=== PATIENT | male | born 1980 | race Caucasian/White ===

== ENCOUNTER 2019-07-10 12:40 | Emergency (ER) | payer OTHER ==
--- NOTE | 2019-07-10 14:11 | ED ---
Psychiatric Complaint - HPI Summary HPI Summary: 39 year old M arriving via private car to [facility] complains of anxiety attacks, decreased appetite, insomnia x6 weeks. Patient states he was released from incarceration 6 weeks ago and was not given any medications or prescriptions when he was released. He has not had any of his psychiatric medications for 6 weeks. Patient had an appointment with Mental Health this morning and was referred to the ED for medication refill. He states he has been unable to find anyone to prescribe him his psychiatric medications. Patient states he has an appointment with Saritha tomorrow 07/11/2019 AM as new patient. Patient denies suicidal ideation and homicidal ideation. Symptoms aggravated by nothing. Symptoms alleviated by nothing. Medications reviewed. Allergies noted. Home Medications Medication Instructions Recorded Confirmed Type Depakote 500 mg PO BID 11/28/13 07/10/19 History hydrOXYzine pamoate [Vistaril] 25 mg PO BID 12/01/18 07/10/19 History Risperidone 1 mg PO BID 07/10/19 07/10/19 History - History Of Current Complaint Chief Complaint: EDPsychosocial Time Seen by Provider: 07/10/19 13:59 Hx Obtained From: Patient Onset/Duration: Lasting Weeks - 6, Still Present Aggravating Factor(s): Nothing Alleviating Factor(s): Nothing Has Suicidal: Denies: Thoughts Has Homicidal: Denies: Thoughts - Allergies/Home Medications Allergies/Adverse Reactions: Allergies Allergy/AdvReac Type Severity Reaction Status Date / Time Penicillins Allergy Swelling Verified 07/10/19 12:47 Of Face,Lips,& Throat Home Medications: Home Medications Depakote 500 mg PO BID 11/28/13 [History Confirmed 07/10/19] hydrOXYzine pamoate [Vistaril] 25 mg PO BID 12/01/18 [History Confirmed 07/10/19 ] Divalproex Sodium [Depakote] 500 mg PO BID #20 tablet. 07/10/19 [Rx] Risperidone 1 mg PO BID 07/10/19 [History Confirmed 07/10/19] hydrOXYzine HCL TAB* [Atarax 25 MG TAB*] 25 mg PO TID PRN #30 tab 07/10/19 [Rx] risperiDONE TAB* [Risperdal*] 1 mg PO BID #20 tab 07/10/19 [Rx] PMH/Surg Hx/FS Hx/Imm Hx Endocrine/Hematology History: Denies: Hx Diabetes, Hx Thyroid Disease Cardiovascular History: Denies: Hx Hypertension Comment Only: Other Cardiovascular Problems/Disorders - PATERNAL HX OF VALVE ISSUES Respiratory History: Reports: Hx Asthma Denies: Hx Chronic Obstructive Pulmonary Disease (COPD) GI History: Denies: Hx Ulcer Psychiatric History: Reports: Hx Depression, Hx Post Traumatic Stress Disorder, Hx of Violent Episodes Against Others, Other Psychiatric Issues/Disorders - borderline personality disorder Denies: Hx Eating Disorder - Surgical History Surgery Procedure, Year, and Place: abd laparoscopies; hernia Infectious Disease History: No Infectious Disease History: Reports: Hx of Known/Suspected MRSA Denies: Hx Clostridium Difficile, Hx Hepatitis, Hx Human Immunodeficiency Virus (HIV), Hx Shingles, Hx Tuberculosis, Hx Known/Suspected VRE, Hx Known/ Suspected VRSA, History Other Infectious Disease, Traveled Outside the [place] in Last 30 Days - Family History Known Family History: Positive: Other - depression - Social History Alcohol Use: Weekly Hx Substance Use: Yes Substance Use Type: Reports: Marijuana Hx Tobacco Use: Yes Smoking Status (MU): Heavy Every Day Tobacco Smoker Type: Cigarettes Amount Used/How Often: 2 ppd or more Length of Time of Smoking/Using Tobacco: 17+ YEARS Have You Smoked in the Last Year: Yes Review of Systems Positive: Other - decreased appetite Positive: Other - anxiety attacks, insomnia; NEGATIVE: suicidal ideation, homicidal ideation All Other Systems Reviewed And Are Negative: Yes Physical Exam - Summary Physical Exam Summary: Appearance: The patient is well-nourished in no acute distress and in no acute pain. Skin: The skin is warm and dry, and skin color reflects adequate perfusion. HEENT: The head is normocephalic and atraumatic. The pupils are equal and reactive. The conjunctivae are clear and without drainage. Nares are patent and without drainage. Mouth reveals moist mucous membranes, and the throat is without erythema and exudate. The external ears are intact. The ear canals are patent and without drainage. The tympanic membranes are intact. Neck: The neck is supple with full range of motion and non-tender. There are no carotid bruits. There is no neck vein distension. Respiratory: Chest is non-tender. Lungs are clear to auscultation and breath sounds are symmetrical and equal. Cardiovascular: Heart is regular rate and rhythm. There is no murmur or rub auscultated. There is no peripheral edema and pulses are symmetrical and equal. Abdomen: The abdomen is soft and non-tender. There are normal bowel sounds heard in all four quadrants and there is no organomegaly palpated. Musculoskeletal: There is no back tenderness noted. Extremities are non-tender with full range of motion. There is good capillary refill. There is no peripheral edema or calf tenderness elicited. Neurological: Patient is alert and oriented to person, place and time. The patient has symmetrical motor strength in all four extremities. Cranial nerves are grossly intact. Deep tendon reflexes are symmetrical and equal in all four extremities. Psychiatric: The patient has an appropriate affect and does not exhibit any anxiety or depression. Triage Information Reviewed: Yes Vital Signs On Initial Exam: Initial Vitals Temp Pulse Resp BP Pulse Ox 97.1 F 76 16 142/65 98 07/10/19 12:42 07/10/19 12:42 07/10/19 12:42 07/10/19 12:42 07/10/19 12:42 Vital Signs Reviewed: Yes Procedures - Sedation Patient Received Moderate/Deep Sedation with Procedure: No Diagnostics - Vital Signs Vital Signs Temp Pulse Resp BP Pulse Ox 07/10/19 12:42 97.1 F 76 16 142/65 98 - Laboratory Lab Statement: Any lab studies that have been ordered have been reviewed, and results considered in the medical decision making process. Course/Dx - Course Course Of Treatment: I don't mind renewing Mr. Cruz's medications until he has a chance to get in to see either his new PCP at [facility] or his psychiatrist. There is no indication that there is a danger to himself or others at this time. - Differential Dx/Clinical Impression Provider Diagnosis: Bipolar disorder Discharge ED - Sign-Out/Discharge Documenting (check all that apply): Patient Departure - Discharge Plan Condition: Stable Disposition: HOME Prescriptions: Divalproex Sodium [Depakote] 500 mg PO BID #20 tablet. hydrOXYzine HCL TAB* [Atarax 25 MG TAB*] 25 mg PO TID PRN #30 tab PRN Reason: Anxiety risperiDONE TAB* [Risperdal*] 1 mg PO BID #20 tab Patient Education Materials: Medicine Refill (ED) Referrals: [facility] [Provider Group] - 07/11/19 Additional Instructions: Follow up with Melara at your scheduled appointment tomorrow 07/11/2019. Return to the Emergency Department for new or worsening symptoms. - Billing Disposition and Condition Condition: STABLE Disposition: Home - Attestation Statements Document Initiated by Maria De Jesus: Yes Documenting Scribe: Crystal Tran Provider For Whom Maria De Jesus is Documenting (Include Credential): Frederick Shah MD Scribe Attestation: ICrystal, scribed for Frederick Shah MD on 07/10/19 at 2120. Scribe Documentation Reviewed: Yes Provider Attestation: The documentation as recorded by the [email or web address] angeles accurately reflects the service I personally performed and the decisions made by me, Frederick Shah MD Status of Scribe Document: Viewed
[2019-07-10 18:19] VITALS: BP 0/0
== END 2019-07-10 14:30 | disposition home or self-care (01) ==
LOC: ED 12:40
DX: F31.9 Bipolar disorder, unspecified (principal); Z76.0 Encounter for issue of repeat prescription; Z88.0 Allergy status to penicillin; F17.210 Nicotine dependence, cigarettes, uncomplicated
CPT/HCPCS: 99282

== ENCOUNTER 2019-07-27 15:53 | Emergency (ER) | payer OTHER ==
--- OUTSIDE RECORDS SUMMARY | 2019-07-27 15:56 | XMS REPORT ---
:1980 Demographics Phone Unavailable Preferred Language Unknown Marital Status Unknown Anabaptist Affiliation Unknown Race Unknown Additional Race(s) Unknown Ethnic Group Unknown Author Organization [facility] Care Team Providers Name Role Phone RAOUL MELGAR Primary Care Physician Unavailable Allergies, Adverse Reactions, Alerts Allergy Code CodeSystem Reaction Severity Criticality Status Start Substance Date Moderate Medications Medication Medication Medication Start Stop Route Dose Status Fill Code CodeSystem Date Date Instructions RxNorm Problems Problem Name Code CodeSystem Alternate Alternate Start End Status Narrative Code CodeSystem Date Date Emotionally 96128699 SNOMED-CT Active unstable 3-22 personality disorder Emotionally 13838503 SNOMED-CT Active unstable 3-22 personality disorder Emotionally [id number] SNOMED-CT Active unstable 3-22 personality disorder Relevant diagnostic tests/laboratory data Narrative No Information Procedures Procedure Code CodeSystem Target Date of Status Service Device Device Device Name Site Procedure Delivery Code Name UID Location SNOMED-CT () 2019-07-[address], [id number] Encounters/Encounter Diagnoses Encounter Encounter Diagnosis Diagnosis Name Diagnosis Date of Service Name Code Code CodeSystem Diagnosis Delivery Location Non-Billable [id number] Emotionally SNOMED-CT 2019-07-10 [facility] , , disorder , Vital Signs No Information Social History Element Description Description Start End Code CodeSystem AdditionalInfo Date Date SexAssignedAtBirth Male 1980-0 M AdministrativeGender 06-05 Hospital Discharge Instructions Reason For Referral Medical Equipment FDA Assessments
--- OUTSIDE RECORDS SUMMARY | 2019-07-27 15:56 | XMS REPORT | Summary of Care ---
:1980 Author Organization [facility] Address [address] [facility] [place] [address] Care Team Providers Name Role Phone Sudhir Luna Primary Care Provider Reason for Visit Reason Comments Establish Care Pt would like to re-establish care. ER F/U Pt seen at ER 07/10 for medications that he did not have refills on and was out of for weeks. Encounter Details Date Type Department Care Team Description 07/11/2019 Office Visit [facility] Ki Matthew MD Anxiety (Primary Dx); Practice [address] [facility] Difficulty controlling anger [address] [place] [address] [place] [address] [phone] Allergies Active Allergy Reactions Severity Noted Date Comments Penicillin G Potassium 01/14/2008 documented as of this encounter (statuses as of 07/11/2019) Medications Medication Sig Dispensed Refills Start Date End Date Status hydrOXYzine HCL Take 1 Tab 120 Tab 2 07/11/2019 Active (ATARAX) 25 MG Oral by mouth TabIndications: THREE TIMES Anxiety DAILY NEEDED (for anxiety). divalproex sodium Take 1 Tab 60 Tab 2 07/11/2019 Active (DEPAKOTE) 500 MG by mouth Oral Tab TWICE DAILY. ECIndications: Difficulty controlling anger risperidone Take 1 Tab 60 Tab 2 07/11/2019 Active (RISPERDAL) 1 MG by mouth Oral TabIndications: TWICE DAILY. Difficulty controlling anger mirtazapine Take 1 Tab 30 Tab 2 10/21/2013 Discontinued (REMERON) 15 MG Oral by mouth 0 (Other) Tab EVERY BEDTIME. diphenhydrAMINE Take 50 mg 0 Discontinued (BENADRYL) 50 MG by mouth 0 Oral Cap EVERY 4-6 HOURS PRN. divalproex sodium Take 3 Tabs 90 Tab 2 07/31/2014 Discontinued (DEPAKOTE) 500 MG by mouth 0 (Other) Oral Tab EC EVERY BEDTIME. fluoxetine (PROZAC) Take 1 Cap 30 Cap 2 07/31/2014 Discontinued 20 MG Oral Cap by mouth 0 (Other) DAILY. hydrOXYzine HCL Take 1 Tab 90 Tab 2 07/31/2014 Discontinued (ATARAX) 25 MG Oral by mouth 0 (Other) Tab EVERY EIGHT HOURS NEEDED for Itching or anxiety. ranitidine (ZANTAC) Take 1 Tab 60 Tab 5 07/31/2014 Discontinued 150 MG Oral Tab by mouth 0 (Other) TWICE DAILY. trazodone (DESYREL) Take 1 Tab 30 Tab 2 07/31/2014 Discontinued 100 MG Oral Tab by mouth 0 (Other) EVERY BEDTIME. risperidone Take 1 mg by 0 Discontinued (RISPERDAL) 1 MG mouth TWICE 0 (Other) Oral Tab DAILY. documented as of this encounter (statuses as of 07/11/2019) Active Problems Problem Noted Date Depression 01/14/2008 Anxiety 01/14/2008 History of Anger Reaction 01/14/2008 Overview: Was followed by [facility]. Tobacco user documented as of this encounter (statuses as of 07/11/2019) Social History Tobacco Use Types Packs/Day Years Used Date Current Every Day Smoker Cigarettes 3 Smokeless Tobacco: Former User Alcohol Use Drinks/Week oz/Week Comments Not Currently occasionally Sex Assigned at Date Recorded Not on file documented as of this encounter Last Filed Vital Signs Vital Sign Reading Time Taken Comments Blood Pressure 114/72 07/11/2019 8:27 AM EST Pulse 72 07/11/2019 8:27 AM EST Temperature - - Respiratory Rate - - Oxygen Saturation - - Inhaled Oxygen Concentration - - Weight 93.9 kg (207 lb) 07/11/2019 8:27 AM EST Height 179.1 cm (5' 10.5") 07/11/2019 8:27 AM EST Body Mass Index 29.28 07/11/2019 8:27 AM EST documented in this encounter Progress Notes Ristedt, Ki, MD - 07/11/2019 8:20 AM EST PATIENT: Keagan Cruz : 1980 DATE OF SERVICE: 07/11/2019 CHIEF COMPLAINT: Chief Complaint Patient presents with ? Establish Care Pt would like to re-establish care. ? ER F/U Pt seen at ER 07/10 for medications that he did not have refills on and was out of for weeks. Subjective HISTORY OF PRESENT ILLNESS: Keagan Cruz is a 39-y.o. male. [facility]--previously followed by Dr. Luna for anger issues. Is being seen at the [facility] and should be able to see the Psychiatrist on about a month. Is required to attend anger management classes per court order and he is back with his longtime girlfriend and mother of his 12 year old. She is currently and they are working together to keep him straight. Seen last night in the ED for medication refills. The combination was what he was on prior to going [facility]. He notes it generally works well to control his anger but there are times the medication does not control it well enough--hence the stent in [facility]. He has no other complaints today. Past Medical History: Diagnosis Date ? Amblyopia of left eye ? Anxiety 01/14/2008 ? Borderline personality disorder (HCC) ? Depression 01/14/2008 ? History of Anger Reaction 01/14/2008 Was followed by [facility]. ? Tobacco user Family History Problem Relation Age of Onset ? Anxiety Mother ? Respiratory Father Sleep apnea ? Diabetes Sister ? Anxiety Sister #1 ? Anxiety Sister #2 ? Depression/Depressed Sister #1 ? Asthma Sister Current Outpatient Medications Medication Sig ? divalproex sodium (DEPAKOTE) 500 MG Oral Tab EC Take 3 Tabs by mouth EVERY BEDTIME. (Patienttaking differently: Take 500 mg by mouth TWICE DAILY.) ? hydrOXYzine HCL (ATARAX) 25 MG Oral Tab Take 1 Tab by mouth EVERY EIGHT HOURS NEEDED for Itching or anxiety. (Patient taking differently: Take 25 mg by mouth THREE TIMES DAILY NEEDED. Indications: Feeling Anxious) ? risperidone (RISPERDAL) 1 MG Oral Tab Take 1 mg by mouth TWICE DAILY. No current facility-administered medications for this visit. Allergies Allergen Reactions ? Penicillin [Penicillin G Potassium] Social History Socioeconomic History ? Marital status: Single Spouse name: Not on file ? Number of children: Not on file ? Years of education: Not on file ? Highest education level: Not on file Occupational History ? Not on file Social Needs ? Financial resource strain: Not on file ? Food insecurity Worry: Not on file Inability: Not on file ? Transportation needs Medical: Not on file Non-medical: Not on file Tobacco Use ? Smoking status: Current Every Day Smoker Packs/day: 3.00 Types: Cigarettes ? Smokeless tobacco: Former User Substance and Sexual Activity ? Alcohol use: Not Currently Comment: occasionally ? Drug use: Yes Types: Marijuana Comment: and K2 ? Sexual activity: Yes Partners: Female Lifestyle ? Physical activity Days per week: Not on file Minutes per session: Not on file ? Stress: Not on file Relationships ? Social connections Talks on phone: Not on file Gets together: Not on file Attends yarsani service: Not on file Active member of club or organization: Not on file Attends meetings of clubs or organizations: Not on file Relationship status: Not on file ? Intimate partner violence Fear of current or ex partner: Not on file Emotionally abused: Not on file Physically abused: Not on file Forced sexual activity: Not on file Other Topics Concern ? Not on file Social History Narrative ? Not on file Over the last 2 weeks, have you been feeling down, depressed, anxious, or hopeless?: 3 Over the past 2 weeks, have you felt little interest or pleasure in doing things ?: 3 Trouble falling or staying asleep, or sleeping too much?: 3 Feeling tired or having little energy?: 0 Poor appetite or overeating?: 1 Feeling bad about yourself or that you are a failure or have let yourself or your family down?: 3 Trouble concentrating on things, such as reading the newspaper or watching TV?: 3 Moving or speaking so slowly that other people notice OR being fidgety and restless?: 3 Thoughts that you would be better off or of hurting yourself in some way?: 0 PHQ-9 TOTAL SCORE: 19 How difficult have these problems made it for you to do your work, take care of things at home or get along with people?: Extremely difficult In the past 2 years, have you felt depressed or sad most days, even if you felt ok?: Yes REVIEW OF SYSTEMS: Review of Systems Constitutional: Negative for chills, diaphoresis, fever, malaise/fatigue and weight loss. HENT: Negative for congestion, ear discharge, ear pain, hearing loss, sinus pain and sore throat. Eyes: Negative for blurred vision, pain and discharge. Respiratory: Negative for cough, sputum production, shortness of breath and wheezing. Cardiovascular: Negative for chest pain, palpitations and leg swelling. Gastrointestinal: Negative for abdominal pain, blood in stool, constipation, diarrhea, heartburn, nausea and vomiting. Genitourinary: Negative for dysuria, flank pain, frequency and urgency. Musculoskeletal: Negative for falls, joint pain and myalgias. Neurological: Negative for dizziness, tingling, sensory change, loss of consciousness, weakness and headaches. Psychiatric/Behavioral: Positive for depression and substance abuse. Negative for suicidal ideas. The patient is nervous/anxious. The patient does not have insomnia. Objective PHYSICAL EXAM: VITALS: BP 114/72 | Pulse 72 | Ht 5' 10.5" (1.791 m) | Wt 207 lb (93.9 kg) | BMI 29.28 kg/m Body mass index is 29.28 kg/m. Physical Exam Vitals signs and nursing note reviewed. Constitutional: General: He is not in acute distress. Appearance: Normal appearance. He is normal weight. He is not ill-appearing, toxic-appearing or diaphoretic. HENT: Head: Normocephalic and atraumatic. Nose: Nose normal. No congestion or rhinorrhea. Mouth/Throat: Mouth: Mucous membranes are moist. Pharynx: Oropharynx is clear. No oropharyngeal exudate or posterior oropharyngeal erythema. Eyes: Conjunctiva/sclera: Conjunctivae normal. Pupils: Pupils are equal, round, and reactive to light. Neck: Musculoskeletal: Normal range of motion and neck supple. No muscular tenderness. Cardiovascular: Rate and Rhythm: Normal rate and regular rhythm. Pulses: Normal pulses. Heart sounds: Normal heart sounds. No murmur. No friction rub. No gallop. Pulmonary: Effort: Pulmonary effort is normal. Breath sounds: Normal breath sounds. No wheezing, rhonchi or rales. Abdominal: General: Abdomen is flat. Bowel sounds are normal. Tenderness: There is no abdominal tenderness. There is no guarding. Hernia: No hernia is present. Lymphadenopathy: Cervical: No cervical adenopathy. Neurological: General: No focal deficit present. Mental Status: He is alert and oriented to person, place, and time. Psychiatric: Attention and Perception: Attention and perception normal. Mood and Affect: Mood and affect normal. Speech: Speech normal. Behavior: Behavior normal. Behavior is cooperative. Thought Content: Thought content normal. ASSESSMENT / IMPRESSION: 1. Anxiety Refill medication as prescribed before. Pt calm and cooperative this am on medication. Have advised he continue with anger management classes and medication he is currently taking. Follow up with the Psychiatrist at [facility] and then with Dr. Luna to reestablish. - hydrOXYzine HCL (ATARAX) 25 MG Oral Tab; Take 1 Tab by mouth THREE TIMES DAILY NEEDED (for anxiety). Dispense: 120 Tab; Refill: 2 2. Difficulty controlling anger As above. - divalproex sodium (DEPAKOTE) 500 MG Oral Tab EC; Take 1 Tab by mouth TWICE DAILY. Dispense: 60 Tab; Refill: 2 - risperidone (RISPERDAL) 1 MG Oral Tab; Take 1 Tab by mouth TWICE DAILY. Dispense: 60 Tab; Refill:2 Plan As above. Follow up with Dr. Luna in 30-60 days. Author: Ki Matthew MD 07/11/2019 08:49 documented in this encounter Plan of Treatment Date Type Specialty Care Team Description 08/21/2019 Office Visit Family Practice Sudhir Luna MD [address] [place] [address] [phone] Health Maintenance Due Date Last Done Comments PNEUMOCOCCAL 0-64 YRS (1 of 1 1988 - PPSV23) DTaP/Tdap/Td Vaccines ( - 1993 Tdap) INFLUENZA VACCINE (#1) 2019 DEPRESSION SCREENING 07/11/2020 07/11/2019, 07/11/2019 HEPATITIS A IMMUNIZATION Aged Out No longer eligible based SERIES on patient's age to complete this topic HPV IMMUNIZATION SERIES Aged Out No longer eligible based on patient's age to complete this topic MENINGOCOCCAL VACCINE IMM Aged Out No longer eligible based on patient's age to complete this topic documented as of this encounter Goals Goal Patient Goal Associated Recent Patient-Stated? Author Type Problems Progress Depression Depression 19 No Tiff, screen (PHQ-9) (07/11/2019 MD Ki total score < 5 8:36 AM EST) Note: This is an individualized treatment (depression) goal for Keagan Cruz: Displayed above is your goal for a depression screening (PHQ-9) score that would indicate good control of your depression. Keep a regular sleep schedule Lifestyle No Ki Matthew MD Note: This is an individualized lifestyle goal for Keagankorey Cruz: Please maintain a regular sleep schedule. This may help with some symptoms of depression. Take all prescribed medications as directed Self-management No Ki Matthew MD Note: This is an individualized self-management goal for Keagan Cruz: Please take all prescribed medications as directed. 1. Do not skip doses. If you cannot afford your medications, talk with your doctor. 2. Use a pill reminder system such as a pill box if needed. Your pharmacist can help you with this. 3. Contact your Pharmacy 5 days before your medication runs out. If you cannot take your medications for any reasons, talk with your doctor. 4. Please bring all of your medication bottles and inhalers (or a list of all your medications/inhalers) with you to every visit. Potential barriers to meeting all of your care plan goals will continue to be addressed on an ongoing basis. documented as of this encounter Results Not on filedocumented in this encounter Visit Diagnoses Diagnosis Anxiety Anxiety state, unspecified Difficulty controlling anger documented in this encounter Insurance Payer Benefit Plan / Subscriber ID Effective Dates Phone Address Type Group [place] [id number] 2019-Present Medicaid [place] Guarantor Name Account Type Relation to Date of Phone Billing Patient Address Keagan Cruz Personal/Family 1980 [address] [phone] [place], [place] ([place]) [id number] documented as of this encounter
== END 2019-07-27 16:45 | disposition left against medical advice (07) ==
LOC: UCEAST 15:53
DX: S61.419D Laceration without foreign body of unspecified hand, subsequent encounter (principal); X58.XXXD Exposure to other specified factors, subsequent encounter; Z53.21 Procedure and treatment not carried out due to patient leaving prior to being seen by health care provider